=== PATIENT | male | born 1985 | race Caucasian/White ===

== ENCOUNTER 2016-05-21 13:52 | Emergency (ER) | payer OTHER ==
[~2016-05-21] VITALS: Ht 175.3 cm; Wt 67.9 kg
[2016-05-21 13:55] VITALS: BP 138/80
[2016-05-21] MEDS ORDERED: DEXAMETHASONE 4 MG TABLET ONE (14:39)
[2016-05-21] MEDS ORDERED: DEXAMETHASONE 4 MG TABLET PO ONE (15:00)
[2016-05-21] MEDS ORDERED: ONDANSETRON ODT 4 MG PO ONE (16:00)
[2016-05-21] MEDS ORDERED: ACETAMINOPHEN 325 MG TABLET PO ONE (16:00)
[2016-05-21] MEDS ORDERED: ONDANSETRON ODT 4 MG ONE (16:09)
[2016-05-21] MEDS ORDERED: ACETAMINOPHEN 325 MG TABLET ONE (16:10)
== END 2016-05-21 16:44 | disposition home or self-care (01) ==
LOC: ED 15:30
DX: J02.8 Acute pharyngitis due to other specified organisms (principal); J00 Acute nasopharyngitis [common cold]
CPT/HCPCS: 99284; Q0162